=== PATIENT | female | born 1960 | race Caucasian/White ===

== ENCOUNTER 2022-03-23 02:40 | Emergency (ER) | payer OTHER ==
[~2022-03-23] VITALS: Ht 165.1 cm; Wt 100.0 kg
--- NOTE | 2022-03-23 02:45 | PHYS DOC ---
Adult General HPI HPI Patient is a 61-year-old female who presents with chest pain over the last 2 to 3 weeks, intermittently. States that starts with a weird sensation in her mouth and thinks that it, goes down her neck into the center of her chest and feels tingly. States he is never had anything like this before a few weeks ago. [place] she had not talk to her doctor. Denies any recent traumas, travels, illnesses, fevers, shortness of breath, dyspnea on exertion, orthopnea, PND, edema, abdominal pain, nausea, vomiting, diarrhea. Denies any numbness/weakness/tingling. Denies any trouble sitting, standing or walking. States this happens usually while she is just sitting there and cannot think of any times it happened during exertion. Denies any medical history and states she is on no medications. Denies any known cardiac history but states she does not have a doctor and has not been to the doctor in several years. Review of Systems Review of Systems Review of systems otherwise unremarkable except noted in HPI Physical Exam Physical Exam Constitutional: Well developed, well nourished, no acute distress, non-toxic appearance. [] HENT: Normocephalic, atraumatic, bilateral external ears normal, oropharynx moist, no oral exudates, nose normal. [] Eyes: conjunctiva normal, no discharge. [] Neck: Normal range of motion, no tenderness, supple, no stridor. [] Cardiovascular:Heart rate regular rhythm, no murmur [] Lungs & Thorax: Bilateral breath sounds clear to auscultation [] Abdomen: soft, no tenderness, no masses, no pulsatile masses. [] Skin: Warm, dry, no erythema, no rash. [] Back: No tenderness, no CVA tenderness. [] Extremities: No tenderness, no cyanosis, no clubbing, ROM intact, no edema. [] Neurologic: Alert and oriented X 3, normal motor function, normal sensory function, no focal deficits noted. [] Psychologic: Affect normal, judgement normal, mood normal. [] EKG EKG [] Radiology/Procedures Radiology/Procedures [] Heart Score C/O Chest Pain: Yes HEART Score for Chest Pain: HEART Score for Chest Pain Response (Comments) Value History Slighlty/Non-Suspicious 0 ECG Normal 0 Age >45 - < 65 1 Risk Factors 1 or 2 Risk Factors 1 Troponin >1-<3x Normal Limit 1 Total 3 Risk Factors: Risk Factors: DM, Current or recent (<one month) smoker, HTN, HLP, family history of CAD, obesity. Risk Scores: Risk Factors: DM, Current or recent (<one month) smoker, HTN, HLP, family history of CAD, obesity. Course & Med Decision Making Course & Med Decision Making Patient is a 61-year-old female presents with chest pain Vital signs not concerning. EKG with a rate of 76, QRS 92, QTc 466, no STEMI. Initial troponin slightly elevated at 94. Chest x-ray normal.Laboratory mireya sis not concerning. Discussed all findings with family and recommended a 3-hour troponin as her symptoms started just before coming into the emergency department. Rest of patient care handed off to day team. [] Dragon Disclaimer Dragon Disclaimer This electronic medical record was generated, in whole or in part, using a voice recognition dictation system. Departure Departure: Impression: Primary Impression: Chest pain Additional Impression: Elevated troponin Disposition: 02 [facility] Condition: STABLE Referrals: PCP,LEONORA (PCP) [facility] Patient Instructions: Chest Pain (Nonspecific) Problem Qualifiers NISA MCINTYRE MD March 23, 2022 02:44
--- NOTE | 2022-03-23 03:34 | RAD ---
XR CHEST 1V Clinical History: Reason: CP / Spl. Instructions: / History: Technique: AP view of the chest was obtained at 03/23/2022 2:43 AM. Comparison: June 10, 2006. Findings: The cardiomediastinal silhouette is normal. The pulmonary vasculature is normal. There is linear opac ities in the lung bases. Impression: Mild basal infiltrates likely discoid atelectasis. Electronically signed by: Edwin Solis III, MD (03/23/2022 3:32 AM) [facility]
[2022-03-23 03:39] LABS: CALCIUM 9.9 mg/dL (8.5-10.1); CREATININE 0.8 mg/dL (0.6-1.0); GFR 72.4; MAGNESIUM 1.9 mg/dL (1.8-2.4); POTASSIUM 4.2 mmol/L (3.5-5.1)
[2022-03-23 03:43] LABS: BASO % 1 % (0-3); EOS # 0.2 x10^3/uL (0.0-0.7); EOS % 2 % (0-3); HEMATOCRIT 44.4 % (36.0-47.0); HEMOGLOBIN 14.8 g/dL (12.0-15.5); LYMPH # 0.8 x10^3/uL (1.0-4.8); LYMPH % 11 % (24-48); MEAN CORPUSCULAR HEMOGLOBIN 30 pg (25-35); MEAN CORPUSCULAR HGB CONC 33 g/dL (31-37); MEAN CORPUSCULAR VOLUME 89 fL (79-100); MONO # 0.6 x10^3/uL (0.0-1.1); MONO % 8 % (0-9); NEUT # 5.9 x10^3uL (1.8-7.7); NEUT % 78 % (31-73); PLATELET COUNT 261 x10^3/uL (140-400); RED BLOOD COUNT 4.99 x10^6/uL (3.50-5.40); RED CELL DISTRIBUTION WIDTH 14.6 % (11.5-14.5); WHITE BLOOD COUNT 7.5 x10^3/uL (4.0-11.0)
[2022-03-23] MEDS: ASPIRIN CHEWABLE 81 MG TABLET. PO ONE (04:32)
[2022-03-23 04:43] LABS: BACTERIA,URINE 0 /HPF (0-FEW); CLARITY,URINE CLEAR; COLOR,URINE YELLOW; GLUCOSE,URINE NEG (NEG); NITRITE,URINE NEG (NEG); RBC,URINE 0 /HPF (0-2); SQUAMOUS EPITHELIAL CELL,UR OCC /LPF; UROBILINOGEN,URINE 0.2 mg/dL (0.2 mg/dL); WBC,URINE OCC /HPF (0-4)
[2022-03-23 05:50] VITALS: BP 135/81
== END 2022-03-23 05:58 | disposition left against medical advice (07) ==
LOC: ER 02:40
DX: R07.89 Other chest pain (principal); R77.8 Other specified abnormalities of plasma proteins
CPT/HCPCS: 36415; 71045; 80048; 81001; 83735; 84484; 85025; 85379; 85610; 85730; 93005; 99285